=== PATIENT | male | born 1980 | race Caucasian/White ===

== ENCOUNTER 2016-09-25 23:11 | Emergency (ER) | payer BC | END 2016-09-26 01:31 | disposition home or self-care (01) | LOC: D.ER 23:11 | DX: S91.331A Puncture wound without foreign body, right foot, initial encounter (principal); W26.9XXA Contact with unspecified sharp object(s), initial encounter; Y93.89 Activity, other specified; Y92.89 Other specified places as the place of occurrence of the external cause; L02.611 Cutaneous abscess of right foot; F17.200 Nicotine dependence, unspecified, uncomplicated ==

== ENCOUNTER 2019-09-26 07:51 | Emergency (ER) | payer SELFPAY ==
[~2019-09-26] VITALS: Ht 180.3 cm; Wt 115.9 kg
[2019-09-26 07:56] VITALS: Ht 180.3 cm; Wt 115.9 kg
[2019-09-26 09:15] VITALS: BP 137/83
== END 2019-09-26 10:00 | disposition home or self-care (01) ==
LOC: D.ER 07:51
DX: N48.30 Priapism, unspecified (principal)